=== PATIENT | male | born 1955 | race Caucasian/White ===

== ENCOUNTER 2024-02-29 18:59 | Outpatient (CLI) | payer OTHER | END 2024-02-29 19:00 | disposition critical access hospital (66) | LOC: EMS 18:59 | DX: R55 Syncope and collapse (principal); I95.9 Hypotension, unspecified; R00.1 Bradycardia, unspecified | CPT/HCPCS: A0425; A0427 ==

== ENCOUNTER 2024-02-29 19:12 | Emergency (ER) | payer OTHER ==
--- NOTE | 2024-02-29 19:32 | ED Physician Documentation ---
History of Present Illness - Stated complaint Stated Complaint: SYNCOPE - Chief complaint Chief Complaint: Neuro - History obtained from History obtained from: Patient, Family (), EMS - Additonal information Additional information: 68-year-old man presents with syncopal episode after taking Viagra and smoking marijuana while on the first day of a camping trip today. states that they had half a joint a piece and then were starting to prepare dinner when he became pale and slumped backwards, briefly unresponsive. she called ems at that time. he quickly returned to baseline and is AOX4. denies Fever, chest pain, shortness of breath, nausea/vomiting/diarrhea, abdominal pain, focal neurological deficits. Patient was not incontinent of urine or stool and had no seizure-like activity. PD PAST MEDICAL HISTORY - Past Medical History Cardiovascular: Hypertension, Other Musculoskeletal: Chronic back pain, Other - Past Surgical History Ortho: Spine surgery Cardiovascular: Vascular surgery - Present Medications Home Medications: Ambulatory Orders Medication Instructions Recorded Confirmed Lisinopril [Zestril] 20 mg PO DAILY 02/29/24 02/29/24 Sildenafil Citrate 100 mg PO PRN PRN 02/29/24 02/29/24 amLODIPine [Norvasc] 5 mg PO DAILY 02/29/24 02/29/24 hydroCHLOROthiazide [Hydrodiuril] 1 tab PO DAILY 02/29/24 02/29/24 - Allergies Allergies/Adverse Reactions: Allergies Allergy/AdvReac Type Severity Reaction Status Date / Time bacitracin Allergy Rash Verified 02/29/24 19:26 [From Neosporin ([id number])] lidocaine Allergy Rash Verified 02/29/24 19:26 neomycin Allergy Rash Verified 02/29/24 19:26 [From Neosporin ([id number])] polymyxin B Allergy Rash Verified 02/29/24 19:26 [From Neosporin ([id number])] Sulfa (Sulfonamide Allergy Rash Verified 02/29/24 19:26 Antibiotics) - Social History Does the pt smoke?: Yes Smoking Status: Former smoker Does the pt drink ETOH?: Yes Does the pt have substance abuse?: Yes Substance Use and Type: Marijuana PD ED PE NORMAL - Vitals Vital signs reviewed: Yes - General General: Alert and oriented X 3, No acute distress, Well developed/nourished - HEENT HEENT: Atraumatic, PERRL, EOMI - Neck Neck: Supple, no meningeal sign - Cardiac Cardiac: Other (borderline bradycardic rate, regular rhythm) - Respiratory Respiratory: No respiratory distress, Clear bilaterally - Abdomen Abdomen: Non tender, Non distended - Derm Derm: Normal color, Warm and dry - Extremities Extremities: No deformity - Neuro Neuro: Alert and oriented X 3, operator command support systems 2-12 intact, No motor deficit, No sensory deficit, Normal speech Eye Opening: Spontaneous Motor: Obeys Commands Verbal: Oriented GCS Score: 15 - Psych Psych: Normal mood, Normal affect Results - Vitals Vitals: Vital Signs - 24 hr 02/29/24 02/29/24 19:19 19:30 Temperature 36.9 C Heart Rate 58 L 51 L Respiratory 19 16 Rate Blood Pressure 107/59 L 99/63 O2 Saturation 98 95 Oxygen O2 Source Room air - EKG (time done) 2004 EKG releavant findings:: EKG personally interpreted by author of this note. Relevant findings are: Rate: Rate (enter#) (45) Rhythm: Sinus bradycardia [place]: Normal Intervals: Other (OR 202) QRS: Normal Ischemia: Normal ST segments - Labs Labs: Laboratory Tests 02/29/24 02/29/24 19:39 19:39 WBC 12.5 H RBC 3.92 L Hgb 12.9 L Hct 38.7 L MCV 98.7 H MCH 32.9 H MCHC 33.3 RDW 12.4 Plt Count 176 MPV 9.4 Neut # (Auto) 10.0 H Lymph # (Auto) 1.2 L [place] # (Auto) 1.1 H Eos # (Auto) 0.1 Baso # (Auto) 0.1 Absolute Nucleated RBC 0.00 Nucleated RBC % 0.0 Sodium 139 Potassium 3.7 Chloride 105 Carbon Dioxide 25 Anion Gap 9.0 BUN 29 H Creatinine 1.4 H Estimated GFR (MDRD) 50 L Glucose 94 Calcium 9.1 Total Bilirubin 0.7 AST 15 ALT 13 Alkaline Phosphatase 96 Troponin I High Sens 12.7 Total Protein 6.4 Albumin 4.0 Globulin 2.4 Albumin/Globulin Ratio 1.7 Lipase 19 PD Medical Decision Making - ED course ED course: 68yM p/w syncopal episode tonight after taking viagra and smoking marijuana. Patient states he has a history of bradycardia and was found to be borderline bradycardic here in the emergency department with sinus bradycardia on EKG. He also had cardiac enlargement on chest x-ray and states that he had an echocardiogram 2 years ago that was normal. 2L IVF provided for possible dehydration given creatinine 1.4. no previous labs available. We unfortunately have no beds available for observation and no echocardiogram available. Plan is for him to follow-up outpatient with cardiology for repeat echo. Strict return precautions given. Departure - Departure Disposition: 01 Home, Self Care Clinical Impression: Syncope, Bradycardia, Cardiac enlargement Condition: Stable Instructions: Syncope Comments: You were seen in the emergency department for fainting episode. You have creatinine 1.4 on labwork, Which indicate some mild irritation of the kidneys. You should have this blood work rechecked with your primary care provider or spool sander. You have cardiac enlargement on chest x-ray which is a sign that you will need an echocardiogram outpatient with your spool sander. Your heart rate was in the 40s to 50s on the desk monitor here in the ED which you say is baseline, but you should also follow this up with your spool sander. Please follow-up with your primary care provider and return to the emergency department if you have any new or worsening symptoms or other concerns. Forms: PCP List
[2024-02-29 19:43] LABS: BASOPHILS # (AUTO) 0.1 10^3/uL (0.0-0.1); BASOPHILS % (AUTO) 0.5 %; EOSINOPHILS # (AUTO) 0.1 10^3/uL (0.0-0.7); HCT - HEMATOCRIT 38.7 % (42.0-52.0); HGB - HEMOGLOBIN 12.9 g/dL (14.0-18.0); LYMPHOCYTES # (AUTO) 1.2 10^3/uL (1.5-3.5); LYMPHOCYTES % (AUTO) 9.6 %; MEAN CORPUSCULAR HEMOGLOBIN 32.9 pg (27.0-31.0); MEAN CORPUSCULAR HGB CONC 33.3 g/dL (32.0-36.0); MEAN CORPUSCULAR VOLUME 98.7 fL (80.0-94.0); MEAN PLATELET VOLUME 9.4 fL (7.4-11.4); MONOCYTES # (AUTO) 1.1 10^3/uL (0.0-1.0); MONOCYTES % (AUTO) 8.9 %; NEUTROPHILS % (AUTO) 79.5 %; PLT - PLATELET COUNT 176 10^3/uL (130-450); RED BLOOD COUNT 3.92 10^6/uL (4.70-6.10); RED CELL DISTRIBUTION WIDTH 12.4 % (12.0-15.0); WHITE BLOOD COUNT 12.5 x10^3/uL (4.8-10.8)
[2024-02-29] MEDS: SODIUM CHLORIDE 0.9% 1,000 ML IV STA (19:43)
[2024-02-29 20:09] LABS: ALBUMIN/GLOBULIN RATIO 1.7 (1.0-2.2); BILIRUBIN,TOTAL 0.7 mg/dL (0.2-1.0); CALCIUM 9.1 mg/dL (8.5-10.3); CREATININE 1.4 mg/dL (0.6-1.3); POTASSIUM 3.7 mmol/L (3.5-4.5); TOTAL PROTEIN 6.4 g/dL (6.4-8.9)
--- NOTE | 2024-02-29 20:11 | XRAY Report ---
PROCEDURE: Chest 1V INDICATIONS: Chest Pain TECHNIQUE: One view of the chest was acquired. COMPARISON: None. FINDINGS: Surgical changes and devices: The bone anchor in the right humeral head. Lungs and pleura: No pleural effusions or pneumothorax. Small calcified nodules. Lungs are otherwis e clear. Mediastinum: Mediastinal contours appear normal. Heart size is enlarged. Bones and chest wall: No suspicious bony lesions. Overlying soft tissues appear unremarkable. IMPRESSION: Cardiomegaly without other acute process. Reviewed by: Raeann Sykes MD on 02/29/2024 8:09 PM PDT Approved by: Raeann Sykes MD on 02/29/2024 8:09 PM PDT Station ID: [id number]
[2024-02-29 20:12] LABS: TROPONIN I HIGH SENSITIVITY 12.7 ng/L (2.3-19.7)
[2024-02-29 21:10] VITALS: BP 107/62; O2SAT 97
== END 2024-02-29 21:09 | disposition home or self-care (01) ==
LOC: ED 19:12
DX: R55 Syncope and collapse (principal); R00.1 Bradycardia, unspecified; I51.7 Cardiomegaly; I10 Essential (primary) hypertension; M54.9 Dorsalgia, unspecified; G89.29 Other chronic pain; F12.10 Cannabis abuse, uncomplicated; Z87.891 Personal history of nicotine dependence
CPT/HCPCS: 36415; 80053; 83690; 84484; 85025; 93005; 99283; 99284